=== PATIENT | male | born 1965 | race Caucasian/White ===

== ENCOUNTER 2024-03-21 08:51 | Inpatient (IN) | payer OTHER ==
[2024-03-21 09:35] VITALS: BMI 30.5
[2024-03-21] MEDS ORDERED: BENZONATATE 200 MG CAPSULE PO PRN (10:29)
[2024-03-21] MEDS ORDERED: IBUPROFEN 400 MG TABLET (FP) PO PRN (10:29)
[2024-03-21] MEDS ORDERED: MAGNESIUM HYDROX 2400MG/30ML ORAL SUSPENSION 30 ML CUP PO PRN (10:29)
[2024-03-21] MEDS ORDERED: NALOXONE HCL 0.4 MG/ML VIAL IM PRN (10:29)
[2024-03-21] MEDS ORDERED: MAG HYDROX/AL HYDROX/SIMETH 30 ML UNIT-DOSE CUP PO PRN (10:29)
[2024-03-21] MEDS ORDERED: guaiFENesin 600 MG TABLET.ER (FP) PO PRN (10:29)
[2024-03-21] MEDS ORDERED: POLYETHYLENE GLYCOL (HEALTHYLAX) 3350 17 GM PACKET PO PRN (10:29)
[2024-03-21] MEDS ORDERED: NALOXONE HCL (KLOXXADO) 8 MG SPRAY NS PRN (10:29)
[2024-03-21] MEDS ORDERED: LOPERAMIDE HCL 2 MG CAPSULE PO PRN (10:29)
[2024-03-21] MEDS ORDERED: BENZOCAINE/MENTHOL (CHLORASEPTIC ) LOZENGE MM PRN (10:29)
[2024-03-21] MEDS ORDERED: IBUPROFEN 600 MG TABLET (FP) PO PRN (10:29)
[2024-03-21] MEDS: PRENATAL VITAMINS W/ FOLIC ACID TABLET (FP) PO SCH (12:25)
[2024-03-21] MEDS: GABAPENTIN 300 MG CAPSULE PO SCH (14:55)
[2024-03-21] MEDS: APIXABAN 5 MG TABLET PO SCH (21:09)
[2024-03-21] MEDS: MELATONIN 5 MG TABLETS PO SCH (21:09)
[2024-03-21] MEDS: THIAMINE 100 MG TABLET PO SCH (21:09)
[2024-03-21] MEDS: traZODone HCL 50 MG TABLET (FP) PO SCH (21:09)
[2024-03-22] MEDS: PANTOPRAZOLE 40 MG TABLET PO SCH (06:25)
[2024-03-22] MEDS: KETOCONAZOLE 2% CREAM - 60GM TUBE TP SCH (06:26)
[2024-03-22] MEDS: ACETAMINOPHEN 325 MG TABLET (FP) PO PRN (06:27)
[2024-03-22] MEDS: PRENATAL VITAMINS W/ FOLIC ACID TABLET (FP) PO SCH (09:58)
[2024-03-22] MEDS ORDERED: METOPROLOL SUCCINATE PO SCH (10:00)
[2024-03-22] MEDS ORDERED: PATIENT'S OWN MEDICATION (NON-FORMULARY) (Omeprazole [Omeprazole] 20 MG Tablet.Dr) PO SCH (10:00)
[2024-03-22] MEDS ORDERED: KETOCONAZOLE TP SCH (10:00)
[2024-03-24 13:01] LABS: PH,URINE 5.5 (5.0-8.0); URINE APPEARANCE CLEAR; URINE BILIRUBIN NEGATIVE (NEGATIVE); URINE COLOR YELLOW; URINE GLUCOSE (UA) NEGATIVE (NEGATIVE); URINE KETONE NEGATIVE (NEGATIVE); URINE LEUK ESTERASE NEGATIVE (NEGATIVE); URINE NITRITE NEGATIVE (NEGATIVE); URINE PROTEIN NEGATIVE (NEGATIVE); URINE UROBILINOGEN 0.2 mg/dL (0.2-1.0)
[2024-03-24 14:54] LABS: HEMATOCRIT 37.5 % (35.4-49); HEMOGLOBIN 12.7 GM/dL (11.7-16.9); MCH 31.8 pg (25.7-33.7); MCHC 33.8 g/dl (32.0-35.9); MEAN CELL VOLUME 94.3 fl (80-96); MEAN PLT VOLUME 10.1 fl (7.5-11.1); PLATELET COUNT 166 10^3/uL (134-434); RBC 3.98 M/mm3 (4.00-5.60); RDW 14.5 % (11.9-15.9); WHITE BLOOD COUNT 6.6 K/mm3 (4.0-10.0)
[2024-03-24 15:00] LABS: POTASSIUM 4.3 mmol/L (3.5-5.1)
[2024-03-24 15:07] LABS: CALCIUM 9.2 mg/dL (8.5-10.1)
[2024-03-24 15:08] LABS: ALBUMIN 3.5 g/dl (3.4-5.0); BLOOD UREA NITROGEN 21.4 mg/dL (7-18)
[2024-03-24 15:12] LABS: URIC ACID 8.4 mg/dL (2.6-7.2)
[2024-03-24 15:13] LABS: BILIRUBIN,TOTAL 0.5 mg/dL (0.2-1); TOT PROT 6.7 g/dl (6.4-8.2)
[2024-03-24 16:22] LABS: SYPHILIS W/ RPR CONF NON-REACTIVE (NONREACTIVE)
[2024-03-24] MEDS: LIDOCAINE PATCH REMOVAL MC SCH (23:27)
[2024-03-24] MEDS: BACLOFEN 10 MG TABLET (FP) PO SCH (23:30)
[2024-03-25] MEDS: LIDOCAINE 5% TOPICAL PATCH TP SCH (10:17)
[2024-03-25] MEDS: ALLOPURINOL 100 MG TABLET (FP) PO SCH ×2 (11:23→12:04)
[2024-03-27] MEDS: GABAPENTIN 400 MG CAPSULE PO SCH (21:05)
[2024-03-28] MEDS: HYDROCORTISONE 1% TOPICAL CREAM 30 GM TUBE TP PRN (14:21)
[2024-03-31] MEDS: ERYTHROMYCIN 0.5% OPHTHALMIC OINTMENT 3.5 GM TUBE OS SCH (15:40)
[2024-04-01] MEDS: hydrOXYzine PAMOATE 25 MG CAPSULE (FP) PO PRN (05:52)
[2024-04-02 06:40] VITALS: RESP 18
[2024-04-03 06:29] VITALS: TEMP 97.3
[2024-04-03 08:47] VITALS: BP 115/78; PULSE 104
== END 2024-04-03 09:11 | disposition home or self-care (01) | DRG 895 ==
LOC: YASAS 08:51 → Y3NR 10:39 → Y3W 11:11
PROVIDERS: ADMIT Allergy & Immunology; ATTEND Psychiatry & Neurology Pain Medicine
PROC: HZ42ZZZ Group Counseling for Substance Abuse Treatment, Cognitive-Behavioral (ICD-10-PCS; principal; 2024-03-21)
DX: F10.20 Alcohol dependence, uncomplicated (principal); F19.282 Other psychoactive substance dependence with psychoactive substance-induced sleep disorder; Z59.02 Unsheltered homelessness; F19.24 Other psychoactive substance dependence with psychoactive substance-induced mood disorder; F31.9 Bipolar disorder, unspecified; F90.9 Attention-deficit hyperactivity disorder, unspecified type; H00.014 Hordeolum externum left upper eyelid; M10.9 Gout, unspecified; R60.0 Localized edema; Z86.711 Personal history of pulmonary embolism; Z79.01 Long term (current) use of anticoagulants; Z86.79 Personal history of other diseases of the circulatory system
CPT/HCPCS: 36415; 80053; 80305; 81003; 82962; 84550; 85027; 86780; 86803; 87811; 93005; 93010; J0475

== ENCOUNTER 2024-03-24 14:38 | Emergency (ER) | payer OTHER ==
[2024-03-24 14:55] VITALS: RESP 18; BMI 31.1
[2024-03-24 17:20] LABS: INR 1.11 (0.83-1.09); PROTHROMBIN TIME (PATIENT) 12.5 SEC (9.7-13.0)
[2024-03-24 17:23] LABS: ACTIVATED PTT 31.7 SECONDS (25.2-36.5)
[2024-03-24 19:20] VITALS: BP 105/67; PULSE 78; TEMP 97.6
== END 2024-03-24 22:31 | disposition home or self-care (01) ==
LOC: JER 14:38
DX: M79.89 Other specified soft tissue disorders (principal)
CPT/HCPCS: 36415; 71275-TC; 83880; 84484; 85379; 85610; 85730; 93005; 93010; 93970-TC; 99285-25; Q9967

== ENCOUNTER 2024-10-30 14:14 | Inpatient (IN) | payer OTHER ==
[2024-10-30 15:53] VITALS: BMI 29.8
[2024-10-30] MEDS ORDERED: BENZONATATE 200 MG CAPSULE PO PRN (15:59)
[2024-10-30] MEDS ORDERED: LOPERAMIDE HCL 2 MG CAPSULE PO PRN (15:59)
[2024-10-30] MEDS ORDERED: NALOXONE (NARCAN) HCL 4 MG/0.1 ML SPRAY NS PRN (15:59)
[2024-10-30] MEDS ORDERED: IBUPROFEN 400 MG TABLET (FP) PO PRN (15:59)
[2024-10-30] MEDS ORDERED: IBUPROFEN 600 MG TABLET (FP) PO PRN (15:59)
[2024-10-30] MEDS ORDERED: guaiFENesin 600 MG TABLET.ER (FP) PO PRN (15:59)
[2024-10-30] MEDS: PRENATAL VITAMINS W/ FOLIC ACID TABLET (FP) PO SCH (18:48)
[2024-10-30 20:47] LABS: URINE APPEARANCE CLEAR
[2024-10-30 20:52] LABS: PH,URINE 5.5 (5.0-8.0); URINE BILIRUBIN NEGATIVE (NEGATIVE); URINE COLOR YELLOW; URINE GLUCOSE (UA) NEGATIVE (NEGATIVE); URINE KETONE NEGATIVE (NEGATIVE); URINE LEUK ESTERASE NEGATIVE (NEGATIVE); URINE NITRITE NEGATIVE (NEGATIVE); URINE PROTEIN NEGATIVE (NEGATIVE); URINE UROBILINOGEN 0.2 mg/dL (0.2-1.0)
[2024-10-30] MEDS: BACITRACIN 0.9 GM PACKET TP SCH (21:59)
[2024-10-30] MEDS: THIAMINE 100 MG TABLET PO SCH (21:59)
[2024-10-30] MEDS: APIXABAN 5 MG TABLET PO SCH (21:59)
[2024-10-30] MEDS: BACLOFEN 10 MG TABLET (FP) PO SCH (21:59)
[2024-10-30] MEDS: hydrOXYzine PAMOATE 25 MG CAPSULE (FP) PO PRN (21:59)
[2024-10-30] MEDS: MELATONIN 5 MG TABLETS PO SCH (21:59)
[2024-10-30] MEDS: LIDOCAINE PATCH REMOVAL MC SCH (22:01)
[2024-10-31] MEDS: PANTOPRAZOLE 40 MG TABLET PO SCH (10:22)
[2024-10-31] MEDS: KETOCONAZOLE 2% CREAM - 60GM TUBE TP SCH (10:22)
[2024-10-31] MEDS: LIDOCAINE 5% TOPICAL PATCH TP SCH (10:32)
[2024-10-31 11:27] LABS: HEMATOCRIT 45.5 % (35.4-49); HEMOGLOBIN 14.8 GM/dL (11.7-16.9); MCH 31.5 pg (25.7-33.7); MCHC 32.5 g/dl (32.0-35.9); MEAN CELL VOLUME 97.1 fl (80-96); MEAN PLT VOLUME 9.4 fl (7.5-11.1); PLATELET COUNT 187 10^3/uL (134-434); RBC 4.68 M/mm3 (4.00-5.60); WHITE BLOOD COUNT 5.9 K/mm3 (4.0-10.0)
[2024-10-31 11:29] LABS: POTASSIUM 4.3 mmol/L (3.5-5.1)
[2024-10-31 11:32] LABS: CALCIUM 9.2 mg/dL (8.5-10.1)
[2024-10-31 11:33] LABS: ALBUMIN 3.6 g/dl (3.4-5.0); BLOOD UREA NITROGEN 18.8 mg/dL (7-18)
[2024-10-31 11:34] LABS: CREATININE 1.2 mg/dL (0.55-1.3)
[2024-10-31 11:35] LABS: URIC ACID 7.1 mg/dL (2.6-7.2)
[2024-10-31 11:38] LABS: BILIRUBIN,TOTAL 0.4 mg/dL (0.2-1)
[2024-10-31] MEDS: FLU VACCINE (FLULAVAL) PF 45 MCG/0.5 ML SYRINGE 2024-2025 IM ONE (11:51)
[2024-10-31] MEDS: ALLOPURINOL 100 MG TABLET (FP) PO SCH (12:03)
[2024-10-31 19:02] LABS: SYPHILIS W/ RPR CONF NON-REACTIVE (NONREACTIVE)
[2024-10-31 19:20] LABS: HIV INTERPRETATION NEGATIVE (NEGATIVE)
[2024-10-31] MEDS: traZODone HCL 50 MG TABLET (FP) PO SCH (21:03)
[2024-11-01] MEDS: MAG HYDROX/AL HYDROX/SIMETH 30 ML UNIT-DOSE CUP PO PRN (10:30)
[2024-11-01] MEDS: ONDANSETRON *ODT* 4 MG TABLET SL PRN (21:55)
[2024-11-01] MEDS: ACETAMINOPHEN 325 MG TABLET (FP) PO PRN (21:56)
[2024-11-03] MEDS: POLYETHYLENE GLYCOL (HEALTHYLAX) 3350 17 GM PACKET PO PRN (07:20)
[2024-11-04] MEDS: MAGNESIUM HYDROX 2400MG/30ML ORAL SUSPENSION 30 ML CUP PO PRN (09:33)
[2024-11-04] MEDS ORDERED: BACLOFEN 10 MG TABLET (FP) PO PRN (13:37)
[2024-11-04] MEDS ORDERED: DOCUSATE SODIUM 100 MG CAPSULE (FP) PO PRN (14:41)
[2024-11-04] MEDS: NALTREXONE HCL 50 MG TABLET PO ONE (15:41)
[2024-11-04] MEDS: BACLOFEN 10 MG TABLET (FP) PO SCH (21:28)
[2024-11-05] MEDS: LACTULOSE 20 GM/30 ML UDC (FOR ORAL USE ONLY) PO PRN (07:03)
[2024-11-05] MEDS: NALTREXONE HCL 50 MG TABLET PO SCH (10:29)
[2024-11-06] MEDS: SENNOSIDES 8.8 MG/5 ML SYRUP PO SCH (21:05)
[2024-11-10] MEDS: BENZOCAINE/MENTHOL (CHLORASEPTIC ) LOZENGE MM PRN (21:50)
[2024-11-11 06:09] VITALS: RESP 18
[2024-11-11] MEDS ORDERED: SODIUM CHLORIDE NASAL SPRAY 44 ML BOTTLE NS PRN (10:23)
[2024-11-11] MEDS: guaiFENesin 200 MG/10 ML 10 ML UNIT-DOSE CUPS PO PRN (15:31)
[2024-11-12] MEDS ORDERED: NALTREXONE MICROSPHERES (VIVITROL) 380 MG DISP.SYRIN IM ONE (10:00)
[2024-11-12] MEDS: ALLOPURINOL 100 MG TABLET (FP) PO SCH (14:43)
[2024-11-13 06:24] VITALS: BP 132/90; PULSE 114; TEMP 97.3
[2024-11-13] MEDS: NALOXONE (NYS OPIOID OVERDOSE PROGRAM) 4 MG/0.1 ML SPRAY NS SCH (08:57)
== END 2024-11-13 09:08 | disposition home or self-care (01) | DRG 895 ==
LOC: YASAS 14:14 → Y3NR 16:36 → Y3W 10-31 15:29
PROVIDERS: ADMIT Psychiatry & Neurology Pain Medicine; ATTEND Psychiatry & Neurology Pain Medicine
PROC: HZ42ZZZ Group Counseling for Substance Abuse Treatment, Cognitive-Behavioral (ICD-10-PCS; principal; 2024-10-30)
DX: F10.20 Alcohol dependence, uncomplicated (principal); F14.20 Cocaine dependence, uncomplicated; F19.282 Other psychoactive substance dependence with psychoactive substance-induced sleep disorder; Z59.02 Unsheltered homelessness; F19.24 Other psychoactive substance dependence with psychoactive substance-induced mood disorder; G47.00 Insomnia, unspecified; I48.91 Unspecified atrial fibrillation; K59.00 Constipation, unspecified; M10.9 Gout, unspecified; R09.81 Nasal congestion; Z86.711 Personal history of pulmonary embolism; Z79.01 Long term (current) use of anticoagulants
CPT/HCPCS: 0241U-QW; 36415; 80053; 80305; 80307; 81003; 84550; 85027; 86780; 86803; 87389; 87811; 90656; 93005; 93010; G0008; J0475; Q0162